=== PATIENT | female | born 2000 | race Caucasian/White ===

== ENCOUNTER 2022-11-19 12:38 | Emergency (ER) | payer OTHER ==
[~2022-11-19] VITALS: Ht 160 cm; Wt 131.5 kg
[2022-11-19] MEDS ORDERED: ANTICONCEPTIVAS (13:10)
== END 2022-11-19 16:50 | disposition home or self-care (01) ==
LOC: ER 12:38
DX: J02.9 Acute pharyngitis, unspecified (principal); Z20.822 Contact with and (suspected) exposure to COVID-19

== ENCOUNTER 2023-05-03 13:29 | Emergency (ER) | payer OTHER ==
[~2023-05-03] VITALS: Ht 157.5 cm; Wt 86.2 kg
[~2023-05-03 13:29] MED LIST: ANTICONCEPTIVAS
== END 2023-05-03 17:37 | disposition home or self-care (01) ==
LOC: ER 13:29
DX: M79.671 Pain in right foot (principal)